=== PATIENT | female | born 1995 | race Caucasian/White ===

== ENCOUNTER 2024-02-08 05:57 | Emergency (ER) | payer BC ==
[~2024-02-08] VITALS: Ht 162.6 cm; Wt 93.0 kg
[2024-02-08 06:15] VITALS: BP 114/76; TEMP 98.4; O2SAT 96
== END 2024-02-08 06:39 | disposition home or self-care (01) ==
LOC: ER 06:02
DX: S01.81XA Laceration without foreign body of other part of head, initial encounter (principal); R55 Syncope and collapse; Z60.2 Problems related to living alone; W22.8XXA Striking against or struck by other objects, initial encounter; Y93.89 Activity, other specified; Y92.89 Other specified places as the place of occurrence of the external cause; Y99.8 Other external cause status